=== PATIENT | female | born 1995 ===

== ENCOUNTER 2021-05-01 17:47 | Emergency (ER) | payer OTHER ==
[~2021-05-01] VITALS: Ht 152.4 cm; Wt 52.2 kg
[2021-05-01] MEDS ORDERED: PRENATABS RX T1 EACH PO (18:11)
[2021-05-01] MEDS ORDERED: MACROBID 100 M100 MG PO (21:16)
== END 2021-05-01 21:32 | disposition home or self-care (01) ==
LOC: ER 17:47
DX: O26.892 Other specified pregnancy related conditions, second trimester (principal); R82.71 Bacteriuria; R82.81 Pyuria; Z3A.13 13 weeks gestation of pregnancy

== ENCOUNTER 2021-05-05 13:59 | Emergency (ER) | payer OTHER ==
[~2021-05-05] VITALS: Ht 152.4 cm; Wt 52.2 kg
[~2021-05-05 13:59] MED LIST: MACROBID 100 M100 MG PO; PRENATABS RX T1 EACH PO
== END 2021-05-05 19:01 | disposition home or self-care (01) ==
LOC: ER 13:59
DX: R33.8 Other retention of urine (principal)